=== PATIENT | male | born 1985 | race Caucasian/White ===

== ENCOUNTER 2020-10-28 16:36 | Emergency (ER) | payer SELFPAY ==
[~2020-10-28] VITALS: Ht 182.9 cm; Wt 104.3 kg
[2020-10-28 16:43] VITALS: BP 120/80
[2020-10-28] MEDS ORDERED: IBUP-1955 PO (18:12)
--- NOTE | 2020-10-28 18:34 | NUR ---
Patient discharged to home in stable condition. Written and verbal after care instructions given. Patient verbalizes understanding of instruction.
== END 2020-10-28 18:34 | disposition home or self-care (01) ==
LOC: ER 16:36
DX: S62.327A Displaced fracture of shaft of fifth metacarpal bone, left hand, initial encounter for closed fracture (principal); W19.XXXA Unspecified fall, initial encounter; Y93.89 Activity, other specified; Y92.89 Other specified places as the place of occurrence of the external cause; Y99.8 Other external cause status
CPT/HCPCS: 73130-TC

== ENCOUNTER 2020-11-04 13:53 | Emergency (ER) | payer SELFPAY ==
[~2020-11-04] VITALS: Ht 182.9 cm; Wt 108.9 kg
[~2020-11-04 13:53] MED LIST: IBUP-1955 PO
[2020-11-04 14:05] VITALS: BP 143/99
--- NOTE | 2020-11-04 15:04 | NUR ---
Patient discharged to home in stable condition. Written and verbal after care instructions given. Patient verbalizes understanding of instruction.
== END 2020-11-04 15:04 | disposition home or self-care (01) ==
LOC: ER 13:57
DX: S41.112D Laceration without foreign body of left upper arm, subsequent encounter (principal); X58.XXXD Exposure to other specified factors, subsequent encounter